=== PATIENT | female | born 1990 | race Caucasian/White ===

== ENCOUNTER 2020-07-12 10:28 | Emergency (ER) | payer OTHER ==
[~2020-07-12] VITALS: Ht 162.6 cm; Wt 95.7 kg
[2020-07-12 10:35] VITALS: BP 135/94
--- NOTE | 2020-07-12 10:46 | NUR ---
29 Y/O FEMALE PRESENTS TO ER WITH C/O EPIGASTRIC PAIN X 1 WEEK. 8/10 PAIN. PT STATES SHE WAS DOCTOR'S APPT, AND TOLD TO COME INTO ER TO HAVE ULTRASOUND COMPLETED. PT STATES "THE DOCTOR THINKS I HAVE STONES GOING THROUGH MY GALLBLADDER". GIVEN TORADOL 60MG IM. ALSO C/O NAUSEA, VOMITING X 8HRS AGO, AND CONSTIPATION, EPIGASTRIC AREA IS TTP. DENIES DIARRHEA, SOB, FEVER, COUGH, TRAUMA/INJURY, PAIN RADIATES TO OTHER LOCATIONS. A&O X4, VSS, R/R EQUAL, AND UNLABORED. SIDE RAIL X1, BED IN LOW POSITION WILL CONTINUE TO MONITOR. NKDA PMH: APPENDECTOMY
[2020-07-12 10:51] LABS: BASOPHILS % (AUTO) 0.2 % (0.0-2.0); EOSINOPHILS % (AUTO) 0.1 % (0.0-4.0); HEMATOCRIT 40.9 % (36-48); HEMOGLOBIN 13.5 g/dL (12.0-16.0); LYMPHOCYTES # (AUTO) 0.6 K/uL (2.5-16.5); LYMPHOCYTES % (AUTO) 6.3 % (20.5-51.1); MEAN CORPUSCULAR HEMOGLOBIN 27 pg (27-31); MEAN CORPUSCULAR HGB CONC 33 g/dL (33-37); MEAN CORPUSCULAR VOLUME 82.4 fL (80-94); MONOCYTES # (AUTO) 0.3 K/uL (0.8-1.0); MONOCYTES % (AUTO) 3.2 % (1.7-9.3); NEUTROPHILS # (AUTO) 8.3 K/uL (1.8-7.7); NEUTROPHILS % (AUTO) 90.2 % (42.2-75.2); PLATELET COUNT (AUTO) 342 K/uL (140-450); RED BLOOD CELL COUNT(AUTO) 4.97 MIL/uL (4.20-5.40); WHITE BLOOD COUNT (AUTO) 9.2 K/uL (4.8-10.8)
[2020-07-12 11:12] LABS: ANION GAP 15.2 (8-16); CARBON DIOXIDE 24.7 mmol/L (21-32); CREATININE 0.7 mg/dL (0.6-1.3); POTASSIUM 3.9 mmol/L (3.5-5.1); TOTAL BILIRUBIN 3.5 mg/dL (0.0-1.0)
--- NOTE | 2020-07-12 11:40 | NUR ---
PT RESTING IN BED QUIETLY. A&O X4, VSS, R/R EQUAL, AND UNLABORED. SIDE RAIL X1 BED IN LOW POSITION, WILL CONTINUE TO MONITOR.
--- NOTE | 2020-07-12 12:38 | NUR ---
Patient being evaluated by Dr. uA at bedside.
[2020-07-12] MEDS ORDERED: NACL 0.9% 1,000 ML IV ONE (12:45)
[2020-07-12] MEDS ORDERED: MORPHINE SULFATE 4 MG/ML SYR IVP ONE (12:45)
[2020-07-12] MEDS ORDERED: ONDANSETRON 4 MG/2 ML VIAL IVP ONE (12:45)
--- NOTE | 2020-07-12 13:34 | NUR ---
TRANSFER DOCUMENTS SIGNED BY PT.
--- NOTE | 2020-07-12 13:34 | NUR ---
PT RESTING IN BED QUIETLY, MOTHER AT BEDSIDE. A&O X4, VSS, R/R EQUAL, AND UNLABORED. SIDE RAIL X1 BED IN LOW POSITION, WILL CONTINUE TO MONITOR.
[2020-07-12] MEDS ORDERED: PIPERACILLIN/TAZOBACTAM 3.375 GM in DEXTROSE 5% 50 ML IV ONE (14:25)
--- NOTE | 2020-07-12 14:41 | NUR ---
PT RESTING IN BED QUIETLY. NO DISTESS NOTED. VSS, R/R EQUAL, AND UNLABORED. SIDE RAIL X1, BED IN LOW POSITION, WILL CONTINUE TO MONITOR.
[2020-07-12] MEDS ORDERED: PIPERACILLIN/TAZOBACTAM 3.375 GM VIAL IV ONE ×2 (15:03→15:07)
--- NOTE | 2020-07-12 15:26 | NUR ---
PT RESTING IN BED QUIETLY. NO DISTESS NOTED. VSS, R/R EQUAL, AND UNLABORED. SIDE RAIL X1, BED IN LOW POSITION, WILL CONTINUE TO MONITOR.
--- NOTE | 2020-07-12 16:21 | NUR ---
SPOKE TO KAVIN AT [facility] IN [place] GAVE REPORT FOR PT. RECEIVING DOCTOR IS DR. WRIGHT IN THE ER.
[2020-07-12 16:30] VITALS: BP 112/81
--- NOTE | 2020-07-12 16:30 | NUR ---
Patient to be transferred to [facility]. Is being transferred due to PANCREATITIS. Receiving facility has accepting physician and available space. ER physician has signed transfer form. Patient or responsible democrat has agreed to transfer and signed form. Patient belongings inventoried and will be sent with patient. Copy of nursing notes, lab reports, EKG, Physicians Orders and X-rays to be sent with patient. Report called to KAVIN at receiving facility. PATIENT TAKEN BY JENNIFER.
--- NOTE | 2020-07-15 23:18 | NUR ---
late entry----- s/w primary nurse, Jennifer SHAIKH, regarding end time, as follows: 07/12/20 NS 0.9% , End time: 1357
== END 2020-07-12 16:40 | disposition short-term general hospital (02) ==
LOC: MED 10:28
DX: K85.90 Acute pancreatitis without necrosis or infection, unspecified (principal); R10.13 Epigastric pain; Z90.49 Acquired absence of other specified parts of digestive tract
CPT/HCPCS: 36415; 76705; 80053; 81002; 81025; 83690; 85025; 87426; 96365; 96375; 99284; J2270; J2405; J2543; Q0092; J7030